=== PATIENT | female | born 1980 | race Caucasian/White ===

== ENCOUNTER 2018-12-28 21:55 | Emergency (ER) | payer SELFPAY ==
[2018-12-29 04:32] VITALS: BP 104/74; PULSE 97; RESP 16; TEMP 98.3
--- NOTE | 2018-12-29 08:37 | OBHP ---
Datetime: 12/28/2018 23:00 IP Adm Impression: Term, intrauterine IP Admit Plan: Discharge home Admit Comment, IP Provider: H_P obtained using online Location Analyst HPI: Sydnee is a 39 year old at approximately 41.1 weeks who initially presents to triage with complaints of light vaginal spotting a few hours ago. Denies pain, contractions, dysuria, urinary ur gency or frequency. Reporting good movement. Patient emigrated here from [place] about 6 weeks ago. She had care there starting at 8 we eks. Per her report her initial due date there was based off her LMP and was Dec 20- (she states that they gave her a range of dates, not one particular date). Per her records review she has a 24.4 week US on August 29 that would give her an YVAN of 12/15/18. She also has a 37 week US after she es tablished care here that put her YVAN an 12/18/18. She currently goes to [facility] and said t hey were in the process of scheduling her for an IOL but she hasn't heard from her clinic in a few da ys. Problems AMA History 2005 - , female , no complications 2014 - NSVDm female , no complications 1 previous SAB PMH Denies PSH Breast Augmentation Medications PNV Allergies NKDA Social Denies tobacco, alcohol or drug use during this OBJECTIVE See exam section labs: O+, Hep B neg, Rubella immune, HIV/RPR nonreactive, GTT WNL Patient declined speculum exam ASSESSMENT/PLAN: 39 year old at approximately 41.1 to 41.6 (YVAN unclear) presents to triage f or what was initially reported as vaginal bleeding. After speaking with her more she declined to be e xamined, reported she was no longer having any vaginal bleeding and kept asking about her induction o f labor. Given her AMA status she was indicated for induction of labor before 41 weeks, and according to her earliest YVAN she may even be almost 42 weeks. This was discussed with the patient and she was offered admission this evening and induction of labor. After much discussion and all questions were answered the patient opted to come back in the morning for IOL. She was given a form to sign out agai nst medical advice given her advanced age and GA, which noted demise as a possible consequence, and the patient signed the form. She will return at 8am tomorrow morning for her scheduled induction . Chela Rizvi MD OB Fellow Abdomen - PN: Normal Lungs - PN: Normal Heart - PN: Normal HEENT - PN: Normal General - PN: Normal Presentation-Admit: cephalic IP Fetus A Comments: Reactive NST FHR - Baseline A Provider: 150 Gestation - Est Wks by US: 41.1 EGA AdmitDate IP: 41.6 Vital Signs Provider: Reviewed; Within Normal Limits IP Chief Complaint: Vaginal bleeding NICHD Variability Prov Fetus A: Moderate 6-25bpm NICHD Accel Fetus A IP Provider: 15X15 NICHD Decel Fetus A IP Provider: None
== END 2018-12-28 23:30 | disposition left against medical advice (07) ==
LOC: H.EROB2 21:55
DX: O26.853 Spotting complicating pregnancy, third trimester (principal); O48.0 Post-term pregnancy; Z3A.41 41 weeks gestation of pregnancy

== ENCOUNTER 2018-12-29 10:33 | Inpatient (IN) | payer SELFPAY ==
[2018-12-29 11:47] VITALS: BMI 27.6
[2018-12-29 12:44] LABS: BASO # 0.1 K/uL (0.0-0.2); BASO % 0.7 % (0.0-2.0); EOS % 0.5 % (0.0-4.0); HEMOGLOBIN 12.6 g/dL (12.0-16.0); LYMPH % 23.9 % (20.0-40.0); MEAN CELL VOLUME 87.8 fl (81.0-99.0); MEAN CORPUSCULAR HEMOGLOBIN 29.1 pg (27.0-31.0); MEAN CORPUSCULAR HGB CONC 33.1 g/dL (33.0-37.0); MEAN PLATELET VOLUME 8.4 fl (7.2-11.7); MONO # 0.4 K/uL (0.0-0.8); MONO % 4.5 % (0.0-10.0); NEUT # 5.8 K/uL (1.8-7.0); NEUT % 70.4 % (50.0-75.0); RBC 4.32 Mil/uL (3.80-5.20); RED CELL DISTRIBUTION WIDTH 16.1 % (11.5-14.5); WHITE BLOOD COUNT 8.3 K/uL (4.8-10.8)
--- NOTE | 2018-12-29 14:41 | OBADHP ---
Datetime: 12/29/2018 12:03 Admit Comment, IP Provider: H_P obtained using online Brewery Pumper HPI: 39 year old at approximately 42 weeks (EDC 24w sono dec 15) who came for IOL Denies pain , contractions, dysuria, urinary urgency or frequency. Reporting good movement. Patient emigrated here from [place] about 6 weeks ago. She had care there starting at 8 we eks. Per her report her initial due date there was based off her LMP and was Dec 20- (she states that they gave her a range of dates, not one particular date). Per her records review she has a 24.4 week US on August 29 that would give her an YVAN of 12/15/18. She also has a 37 week US after she es tablished care here that put her YVAN an 12/18/18. She currently goes to [facility] and said alysa palencia were in the process of scheduling her for an IOL at [facility] but was seen yestreday/signed out AMA an d came today Problems AMA History 2006 - , female infant, no complications 2013 - NSVDm female infant, no complications 1 previous SAB PMH Denies PSH Breast Augmentation Medications PNV Allergies NKDA Social Denies tobacco, alcohol or drug use during this OBJECTIVE See exam section labs: O+, Hep B neg, Rubella immune, HIV/RPR nonreactive, GTT WNL ASSESSMENT/PLAN: IUP at 42w by second tri sono post date preg transfer of care from [place] to [facility] AMA amnio PLAN conditoin exlained to pt. She understands. Her questoins answered about IOL, medicatoins, pa in managment, labor, delivery and care will start Cytotec 25mcg thne 50mcg 4h MAHNDO Abdomen - PN: Normal Back - PN: Normal Heart - PN: Normal Neurologic - PN: Normal HEENT - PN: Normal General - PN: Normal Presentation-Admit: Vertex IP Fetus A Comments: sonogram cep FHR - Baseline A Provider: 140 Membranes, Provider: Intact Pool Provider: Negative IP Hx Assessment: The History has been Reviewed and is Current IP Chief Complaint: Other NICHD Variability Prov Fetus A: Marked >25bpm NICHD Accel Fetus A IP Provider: 15X15 FHR Category Provider Fetus A: Category I NICHD Decel Fetus A IP Provider: None Dilatation, Provider: 0 Effacement, Provider: 0 EGA AdmitDate IP: 41.4 IP Adm Impression: Postterm, intrauterine ; No Active Labor; Intact Membranes IP Admit Plan: Admit to unit; Initiate labor induction protocol Datetime: 12/28/2018 23:00 Lungs - PN: Normal Gestation - Est Wks by US: 41.1 Vital Signs Provider: Reviewed; Within Normal Limits
[2018-12-30] MEDS ORDERED: Oxytocin 30 UNIT 30 UNITS/500 ML BAG IV ONE ×3 (00:07→07:30)
[2018-12-30] MEDS ORDERED: Lidocaine Hydrochloride 10 ML INJ ONE (00:31)
[2018-12-30] MEDS ORDERED: Nalbuphine HCL 10 mg/ml Ampule IVP PRN (00:58)
[2018-12-30] MEDS ORDERED: Nalbuphine 20 mg/ml Inj (10 ml) ONE (01:14)
[2018-12-30] MEDS ORDERED: Lactated Ringer's 1,000 ML IV ONE (02:23)
[2018-12-30] MEDS ORDERED: Fentanyl/Bupivacaine HCl 250 ML EPI ONE (02:24)
[2018-12-30] MEDS ORDERED: Bupivacaine HCl 0.5% PF (30 ml) Inj ONE (02:28)
[2018-12-30] MEDS ORDERED: Lactated Ringer's 1,000 ML IV SCH (02:30)
[2018-12-30] MEDS ORDERED: Lidocaine 2% MPF (5 ml) Inj ONE (05:49)
[2018-12-30] MEDS ORDERED: Oxycodone/Acetaminophen 5/325 mg Tab PO PRN ×2 (06:05→08:29)
[2018-12-30] MEDS ORDERED: Benzocaine/Menthol SPRAY TOP PRN (06:05)
--- NOTE | 2018-12-30 08:39 | OBDS ---
DELIVERY PERSONNEL Delivery Doctor: Sheldon Lucero DO Scrub Nurse: Meredith Ley Mud Worker: Binta Albert RN Resident: Disha Harvey MD MATERNAL INFORMATION Delivery Anesthesia: Local; Epidural Medications in Delivery: lidocaine 2%, pitocin 30 units/500 ml Estimated Blood Loss (ml): 50 Placenta Cultured: No Maternal Complications: None Provider Comments: of viable live infant male over intact perineum with epidural anesthesia. Ap gar 9-9; 1 nuchal cord present which was reduced. Cord was double clamped _ cut at the perineum by Bk Lucero. placed on mother for skin to skin. Spontaneous delivery of placenta with 3-vessel cord . 2nd degree laceration repaired with 2-0 vicryl rapide. EBL 50cc prior to delivery of placenta. -Disha Harvey, PGY-1 OB Atending note. I attended [facility] and performed repiar. She remained stable EBL 50cc LABOR SUMMARY EDC: 12/18/2018 00:00 No. Babies in Womb: 1 Attempted: No Labor Anesthesia: Epidural LABOR INFORMATION Reason for Induction: Postterm Onset of Labor: 12/29/2018 13:00 Complete Dilatation: 12/30/2018 05:40 Cervical Ripening Agents: Cytotec @ Oxytocin: N/A Group B Beta Strep: Negative Antibiotics # of Doses: 0 Antibiotics Time of Last Dose: n/a Steroids Given: None Reason Steroids Not Administered: Not Applicable MEMBRANES Membranes Rupture Method: Spontaneous Rupture of Membranes: 12/30/2018 04:20 Length of Rupture (hrs): 1.65 Amniotic Fluid Color: Clear Amniotic Fluid Amount: Moderate Amniotic Fluid Odor: Normal STAGES OF LABOR Stage 1 hrs: 16 Stage 1 min: 40 Stage 2 hrs: 0 Stage 2 min: 19 Stage 3 hrs: 0 Stage 3 min: 21 Total Time in Labor hrs: 17 Total Time in Labor min: 20 VAGINAL DELIVERY Episiotomy: None Laceration Extension: Second Degree Laceration Type: Perineal Laceration Repair: Yes Laceration Repair Note: 1% Lidocain infiltrated 4-5cc. Perineal laceratoin repaired with 2.0 Vicryl Rapdie suture. Initial Vag Sponge Count: 10 Final Vag Sponge Count: 10 Initial Vag Sharps Count: 2 Final Vag Sharps Count: 2 Sponge Count Correct: Yes Sharps Count Correct: Yes Count Comment: 10 lap pads; one syringe two suture needles BABY A INFORMATION Infant Delivery Date/Time: 12/30/2018 05:59 Method of Delivery: Vaginal Born in Route : No : N/A Forceps: N/A Vacuum Extraction: N/A Shoulder Dystocia : No SHOULDER DYSTOCIA BABY A Delivery Date/Time: 12/30/2018 05:59 PRESENTATION/POSITION BABY A Presentation: Cephalic Cephalic Presentation: Vertex Breech Presentation: N/A PLACENTA INFORMATION BABY A Placenta Delivery Time : 12/30/2018 06:20 Placenta Method of Delivery: Spontaneous Placenta Status: Delivered SCORES BABY A Heart Rate 1 min: >100 bpm Resp Effort 1 min: Good Cry Reflex Irritability 1 min: Cough or Sneeze or Pulls Away Muscle Tone 1 min: Active Motion Color 1 min: Body [place], Extremities Blue Resuscitation Effort 1 min: Tactile Stimulation SCORE 1 MIN: 9 Heart Rate 5 min: >100 bpm Resp Effort 5 min: Good Cry Reflex Irritability 5 min: Cough or Sneeze or Pulls Away Muscle Tone 5 min: Active Motion Color 5 min: Body [place], Extremities Blue Resuscitation Effort 5 min: Tactile Stimulation SCORE 5 MIN: 9 INFORMATION BABY A Gestational Age at Delivery: 41.5 Gestational Status: Term Infant Outcome : Liveborn Infant Condition : Stable Sex: Male IDENTIFICATION/MEDS BABY A ID Band Number: [id number] ID Band Location: Left Leg; Left Arm WEIGHT/LENGTH BABY A Birthweight (gms): 3503 Weight (lb): 7 Infant Weight (oz): 12 CORD INFORMATION BABY A No. Cord Vessels: 3 Nuchal Cord : Around Neck x1, Loose Cord Blood Taken: Yes Suction: Mouth ASSESSMENT BABY A Infant Complications: None Physical Findings at Delivery: Caput Succedaneum Infant Respirations: Appears Normal Care By: Mega Hayes RN Transferred To: Remains with Mother
[2018-12-30] MEDS ORDERED: Multivitamin With Minerals Tab PO SCH (09:00)
[2018-12-30] MEDS: Benzocaine/Menthol SPRAY TOP PRN (10:40)
[2018-12-30] MEDS: Multivitamin With Minerals Tab PO SCH (10:40)
[2018-12-31 07:28] LABS: BASO # 0.1 K/uL (0.0-0.2); BASO % 0.5 % (0.0-2.0); EOS # 0.1 K/uL (0.0-0.7); EOS % 1.1 % (0.0-4.0); HEMOGLOBIN 11.3 g/dL (12.0-16.0); LYMPH # 2.5 K/uL (1.0-4.3); LYMPH % 22.7 % (20.0-40.0); MEAN CELL VOLUME 89.2 fl (81.0-99.0); MEAN CORPUSCULAR HEMOGLOBIN 29.1 pg (27.0-31.0); MEAN CORPUSCULAR HGB CONC 32.7 g/dL (33.0-37.0); MEAN PLATELET VOLUME 7.7 fl (7.2-11.7); MONO # 0.5 K/uL (0.0-0.8); MONO % 4.5 % (0.0-10.0); NEUT # 7.8 K/uL (1.8-7.0); NEUT % 71.2 % (50.0-75.0); RBC 3.89 Mil/uL (3.80-5.20); RED CELL DISTRIBUTION WIDTH 16.4 % (11.5-14.5); WHITE BLOOD COUNT 10.9 K/uL (4.8-10.8)
[2018-12-31] MEDS ORDERED: Influenza Vaccine 60 mcg/0.5 mL SYR (4YR UP) IM ONE (08:23)
[2018-12-31] MEDS ORDERED: Tdap Vaccine 0.5 ml Vial (10-64 yrs) IM ONE (09:00)
[2018-12-31] MEDS: Multivitamin With Minerals Tab PO SCH (09:55)
[2018-12-31] MEDS: Benzocaine/Menthol SPRAY TOP PRN (09:56)
[2019-01-01] MEDS: Multivitamin With Minerals Tab PO SCH (08:08)
[2019-01-01 16:26] VITALS: BP 146/71; PULSE 96; RESP 20; TEMP 98.2; O2SAT 99
--- NOTE | 2019-01-01 17:08 | OBPPN ---
Datetime: 01/01/2019 06:57 PP Pain Prov: Within normal limits PP Nausea Prov: Denies PP Flatus Prov: No PP BM Prov: No PP Heart Prov: Normal PP Lungs Prov: Normal PP Abdomen/Uterus Prov: Normal PP Lochia Prov: Normal PP Extremities Prov: Normal PP C/S Incision Prov: Not Applicable PP Progress Prov: Abnormal PP Comments Phys Exam Prov: GEN: Lying in bed NAD HEENT: NCAT CARD: RRR + S1S2 RESP: CTA, no wheezing, rales or rhonchi GI: + BS, no tenderness to palpation, fundus firm below umbilus EXT: No edema, no calf tenderness PP Impression Prov: Normal progression; difficulties PP Plan Prov: Discharge PP Progress Note Prov: Voyce: [id number] S: Pt is a 38 yo f S/P on 12/30/18 evaluated on PPD2. Pt was seen and examined at [facility] this AM. No overnight events. Pain is minimal controlled with medication. Ambulating well. Bottle feeding, trying to breast feed. Lochia similar to menses. -Flatus/-BM. Denies fever/chills, diarrhe a, nausea/vomiting, chest pain, dyspnea, and dizziness. VS: Stable overnight aCBC: 12.6/37.9 pCBC: 11.3/34.7 GEN: NAD Cardio: S1S2, no murmurs Lungs: CTA b/l, no wheezing, rales or rhonchi Abdomen: BS+, appropriate tenderness to palpation. Uterus is firm and at the level of the umbilic us. EXT: No edema, calves nontender Assessment/Plan: S: 38 yo f S/P on 12/30/18 evaluated for PPD2. Pt remains afebrile, tolerating pain well with medication. Tolerating oral intake. Discharge home today Encouraged and ambulating Continue vitamin Ibuprofen 600mg q6 for pain #30 Flu vaccine and TDAP Given If fevers, pain not controlled with medication come back to the ED F/u with Dr Akhil GREGG in 6 weeks and [facility] for appt in 2-3 days pt has appts Maeve Pang PGY1 Addendum by Dr. León: I have evaluated the patient independently and I agree with the above IP PP Procedures: None Vital Signs Provider PP: Reviewed; Within Normal Limits Datetime: 12/31/2018 08:45 PP Breasts Prov: Not Done PP Vulva/Perineum Prov: Not Done PP CVA Tenderness Prov: Normal IP PP Procedures Comments: flu vaccine
--- NOTE | 2019-01-01 17:08 | OBDCSUM ---
Datetime: 01/01/2019 07:20 Discharged to, Provider: Home Follow up at, Provider: Dr. Landaverde Disch Instr Activity: Normal activity Disch Instr Diet: Regular Discharge Instructions, Provider: Routine instructions given Discharge Diagnosis, Provider: Term Delivered Discharge Time: 01/01/2019 12:22 Follow up in weeks, Provider: Appt 4-6 weeks, and [facility] for appt in 2-3 days Disch Referrals: None Contraception discussed, Prov: Yes Disch Activity Restrictions: No sexual activity; Nothing in vagina - [place], tampons, douche Discharge Comment, Provider: Discharge Summary: Voyce:[id number] 38 yo f S/P on 12/30/18 evaluated on PPD2 : Male, Wt. 3509 gm, 9/9 Post- D/C Summary: No complications during post- period. [facility] No overnight events. Pain is minimal controlled with medication. Ambulating and voidi ng well. Bottle feeding, trying to breast feed. Lochia similar to menses. -Flatus/-BM. Fundus firm be low umbilicus level. Pt is hemodynamically stable (EBL 50cc). Denies fever/chills, diarrhea, nausea/v omiting, chest pain, dyspnea, and dizziness. VS: Stable overnight aCBC: 12.6/37.9 pCBC: 11.3/34.7 GEN: NAD Cardio: S1S2, no murmurs Lungs: CTA b/l, no wheezing, rales or rhonchi Abdomen: BS+, appropriate tenderness to palpation. Uterus is firm and at the level of the umbilic us. EXT: No edema, calves nontender Assessment/Plan: S: 38 yo f S/P on 12/30/18 evaluated for PPD2. Pt remains afebrile, tolerating pain well with medication. Tolerating oral intake. Discharge Instructions given to patient: Encourage and ambulating Ibuprofen 600mg q6 for pain #30. PNV 1 tab po q/day Flu vaccine and TDAP Given Ambulatory with caution, nothing per vagina/sex for 4 weeks, no heavy lifting, avoid stairs, if ex cessive bleeding or fever without relief from Tylenol go to ED F/u with Dr Landaverde OB in 6 weeks and [facility] for appt in 1 week, emailed Afsaneh Pang PGY1 Contraception after Delivery: Undecided
== END 2019-01-01 12:22 | disposition home or self-care (01) | DRG 807 ==
LOC: H.EROB2 10:33 → H.L&D 11:05 → H.EROB2 12:03 → H.L&D 12:04 → H.OB/GYN 12-30 09:05
PROVIDERS: ADMIT Obstetrics & Gynecology; ATTEND Obstetrics & Gynecology
PROC: 4A1HXCZ Monitoring of Products of Conception, Cardiac Rate, External Approach (ICD-10-PCS; 2018-12-29)
PROC: 10E0XZZ Delivery of Products of Conception, External Approach (ICD-10-PCS; principal; 2018-12-30)
PROC: 0KQM0ZZ Repair Perineum Muscle, Open Approach (ICD-10-PCS; 2018-12-30)
PROC: 3E02340 Introduction of Influenza Vaccine into Muscle, Percutaneous Approach (ICD-10-PCS; 2018-12-31)
PROC: 3E0234Z Introduction of Serum, Toxoid and Vaccine into Muscle, Percutaneous Approach (ICD-10-PCS; 2018-12-31)
DX: O48.0 Post-term pregnancy (principal); Z37.0 Single live birth; O69.81X0 Labor and delivery complicated by cord around neck, without compression, not applicable or unspecified; O70.1 Second degree perineal laceration during delivery; O09.523 Supervision of elderly multigravida, third trimester; Z3A.41 41 weeks gestation of pregnancy; Z23 Encounter for immunization